=== PATIENT | female | born 1960 | race Caucasian/White ===

== ENCOUNTER 2024-04-30 14:56 | Outpatient (AMB) | payer OTHER, SELFPAY ==
[2024-04-30 15:16] VITALS: BP 107/75; PULSE 80; RESP 19; TEMP 35.6; O2SAT 92; BMI 29.5
--- NOTE | 2024-04-30 15:16 | PD.ORTHCLVIS ---
Vital signs 04/30/24 15:16 Height 1.5 m Height Method Stated Weight 66.395 kg Weight Measurement Method Standing Scale BMI 29.5 BP 107/75 Blood Pressure Source Automatic Cuff Blood Pressure Location Right Upper Arm Position Sitting Respiration 19 Pulse 80 Pulse Source Monitor Temp 96.1 F L Temp Source Temporal Artery Scan Pulse Oximetry (%) 92 L Oxygen Delivery Method Room Air Med/Allergies Allergies & Medications Allergies trimethoprim Allergy (Severe, Verified 04/30/24 15:17) HIVES oxybutynin Allergy (Verified 04/30/24 15:17) rofecoxib Allergy (Verified 04/30/24 15:17) sulfamethoxazole Allergy (Verified 04/30/24 15:17) tolterodine Allergy (Verified 04/30/24 15:17) Medication Reconciliation ipratropium bromide 0.02 % solution for inhalation 0.5 mg inhalation Q6H ##0 07/12/13 [History Confirmed 04/30/24] montelukast 10 mg tablet (Singulair) 10 mg PO HS #0 tabs 07/12/13 [History Confirmed 04/30/24] sertraline 100 mg tablet (Zoloft) 100 mg PO DAILY #0 tabs 07/12/13 [History Confirmed 04/30/24] albuterol sulfate 90 mcg/actuation aerosol inhaler (ProAir HFA) 2 puff inhalation Q6HR PRN WHEEZING #0 inhalations 05/02/15 [History Confirmed 04/30/24] methocarbamol 750 mg tablet 750 mg PO TID #0 tabs 05/02/15 [History Confirmed 04/30/24] ciclesonide 160 mcg/actuation aerosol inhaler (Alvesco) 1 puff inhalation QDAY 09/11/17 [History Confirmed 04/30/24] hydrocodone 10 mg-acetaminophen 325 mg tablet 1 tab PO Q6H 09/11/17 [History Confirmed 04/30/24] levothyroxine 25 mcg tablet 25 mcg PO QDAY 09/11/17 [History Confirmed 04/30/24] metformin 500 mg tablet 500 mg PO BID 09/11/17 [History Confirmed 04/30/24] terbutaline 5 mg tablet 5 mg PO TID 09/11/17 [History Confirmed 04/30/24] trazodone 50 mg tablet 50 mg PO HS 09/11/17 [History Confirmed 04/30/24] triamterene 75 mg-hydrochlorothiazide 50 mg tablet 1 tab PO QAM 09/11/17 [History Confirmed 04/30/24] alprazolam 1 mg tablet 1 mg PO TID PRN Anxiety 08/28/22 [History Confirmed 04/30/24] lisinopril 10 mg tablet 10 mg PO QDAY 08/28/22 [History Confirmed 04/30/24] Subjective Visit Visit for: follow up visit, hip and knee Immunization / Flu Flu Vaccine in the Last 12 Months: No Flu Vaccine Exclusion Criteria: Refused by Patient History of Present Illness Chief complaint: Right hip pain Patient is a pleasant 64-year-old female with right hip pain. The right hip pain has been ongoing for about 6 months. She is on Coumadin. He is also on muscle relaxer. He has a history of a right total knee replacement and has persistent pain and notices that her knee curved outward. Pain Pain level (0-10): 4 Pain duration: CONSTANT Pain location: inside (medial) Pain quality: sharp, dull and aching Pain timing: increases with activity Associated signs & symptoms: numbness, weakness and stiffness Ambulatory data Ambulatory device: none Treatments Improvement with previous injections: No Improvement with PT: No Improvement with NSAIDS: no Review of Systems Review of Systems: All systems negative unless otherwise noted in HPI. Exam Exam Patient is in no acute distress and is cooperative with the examination today. Patient has a normal mood and affect. Breathing is nonlabored. In no respiratory distress. Bilateral extremities were evaluated and demonstrates sensation intact to light touch. Palpable pedal pulses are present. No significant edema is present. Right hip is tender to palpation. She Has a mildly positive logroll. She can internally rotate to 20 degrees and externally rotate to 15 degrees. She can flex 90 degrees. Her right knee is in valgus alignment. Her knee incision is clean dry intact. There is 5 Millimeters of laxity Left knee is tender to palpation medially. X-rays of the right hip demonstrate mild arthritis. There is significant spinal pathology as well including significant degenerative disc disease in her spine. Her right knee x-rays demonstrate cementless total knee replacement midline position. There is a similar prosthesis. Appears to be in valgus still. I do not see any medial supplements. Left knee x-rays demonstrate significant arthritis . Assessment and Plan Problem List (1) Arthritis of right hip: Status: Acute Plan: Patient is a 64-year-old female with right hip pain and right hip arthritis. It is a bit of an atypical presentation. A lot of her pain is in her buttocks and back. We did a hip injection and she got minimal pain relief. I do think her spine is the most likely cause. She is referred symptoms are consistent with spinal stenosis as she has a shopping cart sign and significant degeneration on x-rays. We will order an MRI. We will likely send her a spine surgeon but we will need an MRI as she likely has significant spinal stenosis Office Procedures GNS Level of Care Nursing/Assessment Patient Status: Established Patient Nursing Assessment/Reassesment: Medication Reconciliation, Update PMH in EMR and Vital Signs Coordination of Care: Complex Care and Chronic Disease 1-5, Education Complex Pt/Fam, Consent,records obtained, informed consent, 1 Ins Authorization, Results/Orders obtained and Staff clarify orders Established Patient Charge Established Patient Point Assignment: 110 Established Patient Point Charge: EP Level 3 (80-115) Past Medical History Past Medical History Have you ever been diagnosed with any of the following: Neurological Problems Seizures: No Cardiology Problems Congestive Heart Failure: No Hypertension: Yes Respiratory Problems Chronic Obstructive Pulmonary Disease (COPD): Yes Asthma: Yes Emphysema: No Pneumonia: Yes Tuberculosis: No Sleep Apnea: Yes Smoking: No Smoking Exposure: No Genital/Urinary Problems Renal Disease: No Musculoskeletal Problems Arthritis: Yes Head,Eye,Nose,Throat Problems Cataracts: Yes (BILATERAL) Deafness: Yes Endocrine Problems Diabetes Mellitus Type 1: No Diabetes Mellitus Type 2: Yes Hypothyroidism: Yes Psychologic Problems Depression: Yes Anxiety: Yes Other Problems Blood Transfusions: No Anesthesia Reactions: Yes (n/v) Cancer: No Surgical History Valve Replacement: Yes (AORTIC VALVE REPLACEMENT) Total Knee Replacement: Yes (RIGHT) Hysterectomy: Yes (2004) Sinus Surgery: Yes (2014)
== END 2024-04-30 15:22 | disposition home or self-care (01) ==
LOC: HODSRG 14:56
PROVIDERS: Supervising Provider Orthopaedic Surgery Adult Reconstructive Orthopaedic Surgery; Visit Provider Orthopaedic Surgery Adult Reconstructive Orthopaedic Surgery
DX: M16.11 Unilateral primary osteoarthritis, right hip (principal); M25.551 Pain in right hip; I10 Essential (primary) hypertension; Z96.651 Presence of right artificial knee joint
CPT/HCPCS: 99213; G0463

== ENCOUNTER → 2024-05-12 | Outpatient (CLI) | payer OTHER, SELFPAY ==
[2024-05-12 08:11] LABS: Collection Type, Urine Clean Catch
[2024-05-12 08:30] LABS: Bilirubin,Urine Negative (Negative); Blood,Urine Trace (Negative); Clarity,Urine Clear (Clear/Hazy); Color,Urine Lt-Yellow (Lt Yel-Yel); Glucose, Urine Negative (Negative); Ketones,Urine Negative (Negative); Leukocyte Esterase,Urine Negative (Negative); Nitrite,Urine Negative (Negative); PH,Urine 6.5 (5.0-7.0); Protein,Urine Negative (Neg - Trace); RBC,Urine 5 /hpf (0-3); Specific Gravity,Urine 1.012 (1.001-1.035); Squamous Epithelial Cell,Urine < 1 /hpf (0-5); Urobilinogen,Urine Negative mg/dL (0.0-1.0); WBC,Urine 1 /hpf (0-5)
[2024-05-12 08:30] LABS: Basophils % (Auto) 1 % (0-2.5); Eosinophils # (Auto) 0.2 Thou/mm3 (0.0-0.5); Eosinophils % (Auto) 2 % (0-10); Hemoglobin 11.3 g/dL (12.0-16.0); Immature Granulocytes % (Auto) 0 % (0-0); Immature Granulocytes Auto 0.02 Thou/mm3 (0.00-0.00); Lymphocytes % (Auto) 28 % (10-50); Mean Corpuscular HGB Conc 33.2 g/dl (31.0-37.0); Mean Corpuscular Hemoglobin 30.6 pg (25.0-35.0); Mean Corpuscular Volume 92 fL (80-100); Monocytes # (Auto) 0.6 Thou/mm3 (0.0-0.8); Monocytes % (Auto) 8 % (0-12); Neutrophils # (Auto) 4.4 Thou/mm3 (1.8-7.7); Neutrophils % (Auto) 61 % (37-80); Nucleated Red Blood Cell % 0 /100 WBC (0); Platelet Count 274 Thou/mm3 (140-440); RDW Standard Deviation 45.1 fL (36.4-46.3); Red Blood Count 3.69 Miln/mm3 (4.00-5.20); White Blood Count 7.1 Thou/mm3 (3.6-11.0)
[2024-05-12 09:00] LABS: Creatinine MALB Rnd Ur 45 mg/dL (30-125); Microalbumin, Random Urine < 3 mg/L (0-300)
[2024-05-12 09:01] LABS: Alanine Aminotransferase 16 U/L (10-49); Albumin, Serum 4.4 gm/dL (3.4-4.8); Albumin/Globulin Ratio 1.6 (1.2-2.2); Anion Gap 6 (7-16); Aspartate Amino Transferase 21 U/L (0-34); BUN/Creatinine Ratio 19 Ratio (12-20); Bilirubin,Total 0.3 mg/dL (0.3-1.2); Blood Urea Nitrogen 17 mg/dL (9-23); Calcium 9.8 mg/dL (8.3-10.6); Calcium (Corrected) 9.8 mg/dL (8.5-10.1); Carbon Dioxide 27.9 mMol/L (20.0-31.0); Chloride 100 mMol/L (98-107); Cholesterol 169 mg/dL (132-200); Creatinine (Component) 0.9 mg/dL (0.6-1.3); Globulin 2.7 gm/dL (2.3-3.5); Glucose 132 mg/dL (74-106); HDL Cholesterol 71 mg/dL (40-60); LDL Cholesterol,Calculated 87 mg/dL (0-130); Osmolality,Calculated 271 (275-295); Potassium 4.3 mMol/L (3.4-5.1); Sodium 134 mMol/L (136-145); Total Protein 7.1 gm/dL (5.7-8.2); Triglycerides 56 mg/dL (30-150); eGFR > 60 See Note
[2024-05-12 09:02] LABS: Alkaline Phosphatase 73 U/L (46-116); Cardiac Risk Estimate 2.4 RATIO (3.7-5.6); Thyroid Stimulating Hormone 3.47 uIU/mL (0.55-4.78)
[2024-05-12 15:03] LABS: Ferritin 29 ng/mL (7.3-270.7)
== END | disposition home or self-care (01) ==
LOC: COPL 07:13
PROVIDERS: PCP Internal Medicine; Referring Provider Internal Medicine; Visit Provider Internal Medicine
DX: E03.9 Hypothyroidism, unspecified (principal); D64.89 Other specified anemias
CPT/HCPCS: 36415; 80053; 80061; 81001; 82043; 82570; 82728; 84443; 85025

== ENCOUNTER → 2024-05-17 | Outpatient (CLI) | payer OTHER, SELFPAY ==
--- NOTE | 2024-05-17 14:45 | XR_ITS ---
Examination: MRI lumbar spine without contrast Date and time of exam: May 17, 2024 1529 hours Comparison January 20, 2021 INDICATIONS: Low back pain beginning 9 months ago radiating to the hips and right groin down the right leg with difficulty walking Technique: Multiple MRI axial and sagittal sections lumbar spine. Sagittal T2-weighted images, TR 3500, TE 118 T1 weighted transverse sections, TR 688 T8.5, T2-weighted sagittal sections T1 weighted sagittal sections TR 621, TE 30 T2 axial sections, TR 4, 190, TE 84. Findings: Again noted grade 1 anterolisthesis L4 on L5 [employer] film shows lumbar dextroscoliosis 15 degrees No lumbar fracture Advanced disc narrowing L1-L2, L2-L3, L4-L5 Adequate marrow signal lumbar vertebral bodies L5-S1 no disc protrusion L4-L5 severe spinal stenosis secondary to the grade 1 anterolisthesis, very prominent facet arthropathy with thickening of ligamentum flavum, circumferentially narrowing the thecal sac, axial image 4 with moderate right L4 ganglionic compression L3-L4 4 mm central lumbar disc bulge L2-L3 no disc protrusion L1-L2 no disc protrusion IMPRESSION: Advanced degenerative disc disease L1-L2, L2-L3, L4-L5 L4-L5 severe spinal stenosis as above
== END | disposition home or self-care (01) ==
PROVIDERS: PCP Internal Medicine; Referring Provider Orthopaedic Surgery Adult Reconstructive Orthopaedic Surgery; Visit Provider Orthopaedic Surgery Adult Reconstructive Orthopaedic Surgery
DX: M51.369 Other intervertebral disc degeneration, lumbar region without mention of lumbar back pain or lower extremity pain (principal); M48.061 Spinal stenosis, lumbar region without neurogenic claudication
CPT/HCPCS: 72148

== ENCOUNTER 2024-06-04 10:23 | Outpatient (AMB) | payer OTHER, SELFPAY ==
[2024-06-04 10:41] VITALS: BP 105/73; PULSE 94; RESP 16; TEMP 36.3; O2SAT 98; BMI 28.9
--- NOTE | 2024-06-04 10:41 | RHCORTHONT_ITS ---
Vital signs 06/04/24 10:41 Height 1.5 m Height Method Stated Weight 65.034 kg Weight Measurement Method Standing Scale BMI 28.9 BP 105/73 Blood Pressure Source Automatic Cuff Blood Pressure Location Left Upper Arm Position Sitting Respiration 16 Pulse 94 Pulse Source Monitor Temp 97.3 F Temp Source Temporal Artery Scan Pulse Oximetry (%) 98 Oxygen Delivery Method Room Air Med/Allergies Allergies & Medications Allergies trimethoprim Allergy (Severe, Verified 06/04/24 10:42) HIVES oxybutynin Allergy (Verified 06/04/24 10:42) rofecoxib Allergy (Verified 06/04/24 10:42) sulfamethoxazole Allergy (Verified 06/04/24 10:42) tolterodine Allergy (Verified 06/04/24 10:42) Medication Reconciliation ipratropium bromide 0.02 % solution for inhalation 0.5 mg inhalation Q6H ##0 07/12/13 [History Confirmed 06/04/24] montelukast 10 mg tablet (Singulair) 10 mg PO HS #0 tabs 07/12/13 [History Confirmed 06/04/24] sertraline 100 mg tablet (Zoloft) 100 mg PO DAILY #0 tabs 07/12/13 [History Confirmed 06/04/24] albuterol sulfate 90 mcg/actuation aerosol inhaler (ProAir HFA) 2 puff inhalation Q6HR PRN WHEEZING #0 inhalations 05/02/15 [History Confirmed 06/04/24] methocarbamol 750 mg tablet 750 mg PO TID #0 tabs 05/02/15 [History Confirmed 06/04/24] ciclesonide 160 mcg/actuation aerosol inhaler (Alvesco) 1 puff inhalation QDAY 09/11/17 [History Confirmed 06/04/24] hydrocodone 10 mg-acetaminophen 325 mg tablet 1 tab PO Q6H 09/11/17 [History Confirmed 06/04/24] levothyroxine 25 mcg tablet 25 mcg PO QDAY 09/11/17 [History Confirmed 06/04/24] metformin 500 mg tablet 500 mg PO BID 09/11/17 [History Confirmed 06/04/24] terbutaline 5 mg tablet 5 mg PO TID 09/11/17 [History Confirmed 06/04/24] trazodone 50 mg tablet 50 mg PO HS 09/11/17 [History Confirmed 06/04/24] triamterene 75 mg-hydrochlorothiazide 50 mg tablet 1 tab PO QAM 09/11/17 [History Confirmed 06/04/24] alprazolam 1 mg tablet 1 mg PO TID PRN Anxiety 08/28/22 [History Confirmed 06/04/24] lisinopril 10 mg tablet 10 mg PO QDAY 08/28/22 [History Confirmed 06/04/24] Exam Exam Patient is in no acute distress and is cooperative with the examination today. Patient has a normal mood and affect. Breathing is nonlabored. In no respiratory distress. Bilateral extremities were evaluated and demonstrates sensation intact to light touch. Palpable pedal pulses are present. No significant edema is present. Right hip is tender to palpation. She Has a mildly positive logroll. She can internally rotate to 20 degrees and externally rotate to 15 degrees. She can flex 90 degrees. Her right knee is in valgus alignment. Her knee incision is clean dry intact. There is 5 Millimeters of laxity Left knee is tender to palpation medially. X-rays of the right hip demonstrate mild arthritis. There is significant spinal pathology as well including significant degenerative disc disease in her spine. Her right knee x-rays demonstrate cementless total knee replacement midline position. There is a similar prosthesis. Appears to be in valgus still. I do not see any medial supplements. Left knee x-rays demonstrate significant arthritis . We reviewed her MRI. This demonstrates severe spinal stenosis at L4-5 with significant compression and central canal stenosis. Assessment and Plan Problem List (1) Spinal stenosis: Status: Acute Plan: Patient is a 64-year-old female with spinal stenosis of significant severity. We recommend that she see a spine doctor. She has a positive shopping cart sign and severe nerve cord compression on the MRI. I am am referring her to a Spine doctor. I discussed the problem with the patient in great detail. She can see me on an as-needed basis as the primary problem is from her spine Office Procedures GNS Level of Care Nursing/Assessment Patient Status: Established Patient Nursing Assessment/Reassesment: Medication Reconciliation, Update PMH in EMR and Vital Signs Coordination of Care: Complex Care and Chronic Disease 1-5, Education Complex Pt/Fam, 1 Ins Authorization, Results/Orders obtained and Staff clarify orders Established Patient Charge Established Patient Point Assignment: 105 Established Patient Point Charge: EP Level 3 (80-115) MA Intake Visit Data Collection New Patient or Established: Established Patient (seen at [facility] within 3 years) Reason for Visit:: MRI RESULTS Seen by Clinical Staff ONLY (RN/MA): No [employer] Required: No PCP or OBGYN visit in last 3 months: Yes Hx Now: No Do You Feel Safe at Home: Yes Questionairres Past Medical History Past Medical History Have you ever been diagnosed with any of the following: Neurological Problems Seizures: No Cardiology Problems Congestive Heart Failure: No Hypertension: Yes Respiratory Problems Chronic Obstructive Pulmonary Disease (COPD): Yes Asthma: Yes Emphysema: No Pneumonia: Yes Tuberculosis: No Sleep Apnea: Yes Smoking: No Smoking Exposure: No Genital/Urinary Problems Renal Disease: No Musculoskeletal Problems Arthritis: Yes Head,Eye,Nose,Throat Problems Cataracts: Yes (BILATERAL) Deafness: Yes Endocrine Problems Diabetes Mellitus Type 1: No Diabetes Mellitus Type 2: Yes Hypothyroidism: Yes Psychologic Problems Depression: Yes Anxiety: Yes Other Problems Blood Transfusions: No Anesthesia Reactions: Yes (n/v) Cancer: No Surgical History Valve Replacement: Yes (AORTIC VALVE REPLACEMENT) Total Knee Replacement: Yes (RIGHT) Hysterectomy: Yes (2004) Sinus Surgery: Yes (2014) Subjective Visit Visit for: follow up visit and MRI Immunization / Flu Flu Vaccine in the Last 12 Months: Yes Flu Vaccine Exclusion Criteria: Already Received History of Present Illness Chief complaint: MRI RESULTS Patient is a pleasant 64-year-old female with persistent right leg pain. We diagnosed her with severe spinal stenosis and ordered an MRI. This demonstrates severe L4-5 spinal compression. She does have a positive shopping cart sign Pain Pain level (0-10): 8 Pain duration: CONSTANT Pain location: groin, inside (medial), outside (lateral), anterior and posterior Pain quality: sharp, dull and aching Pain timing: increases with activity Associated signs & symptoms: numbness Ambulatory data Ambulatory device: none Review of Systems Review of Systems: All systems negative unless otherwise noted in HPI.
== END 2024-06-04 11:18 | disposition home or self-care (01) ==
LOC: HODSRG 10:23
PROVIDERS: PCP Internal Medicine; Referring Provider Internal Medicine; Supervising Provider Orthopaedic Surgery Adult Reconstructive Orthopaedic Surgery; Visit Provider Orthopaedic Surgery Adult Reconstructive Orthopaedic Surgery
DX: M48.061 Spinal stenosis, lumbar region without neurogenic claudication (principal); M79.604 Pain in right leg; I10 Essential (primary) hypertension; E11.9 Type 2 diabetes mellitus without complications; J44.9 Chronic obstructive pulmonary disease, unspecified; E03.9 Hypothyroidism, unspecified
CPT/HCPCS: 99213; G0463

== ENCOUNTER → 2024-07-01 | Outpatient (CLI) | payer OTHER, SELFPAY ==
--- NOTE | 2024-07-01 09:00 | XR_ITS ---
Examination: MRI left ankle, without contrast Date and time of exam: July 01, 2024 1021 hours Comparison October 12, 2016 Technique: Multiple axial sagittal and coronal images of the left ankle have been obtained with the Siemens high-resolution 1.5 Aleksandra MRI scanner. Images obtained include T2-weighted fat-suppressed sagittal sections, TR 3500, TE 46, T2 weighted coronal fat suppressed images, TR 3050, TE 84, T2-weighted transverse fat suppressed images, TR 3260, TE 63, proton density transverse images, TR 4720 TE 46, and T1 weighted coronal images, TR 560, TE 13. Findings: Mild biconvex thickening of the Achilles tendon Mild plantar fasciitis Advanced osteoarthritis subtalar joint Moderate to advanced osteoarthritis tarsometatarsal joints Negative for sinus Tarsi syndrome Dome of the talus intact Prominent diffuse tendinitis flexor tendons, most severe flexor hallucis longus Mild strain anterior posterior talar fibular ligaments Posterior inferior tibiofibular ligaments intact Extensor ligaments intact IMPRESSION: Significant osteoarthritis as above, especially subtalar joint Prominent diffuse flexor tendinitis
== END | disposition home or self-care (01) ==
LOC: SMRI 08:45
PROVIDERS: PCP Podiatrist; Referring Provider Podiatrist; Visit Provider Podiatrist
DX: M19.072 Primary osteoarthritis, left ankle and foot (principal); M67.874 Other specified disorders of tendon, left ankle and foot
CPT/HCPCS: 73721

== ENCOUNTER → 2025-02-16 | Outpatient (CLI) | payer OTHER, SELFPAY ==
[2025-02-16 09:00] LABS: Collection Type, Urine Clean Catch
[2025-02-16 09:26] LABS: Basophils # (Auto) 0.1 Thou/mm3 (0.0-0.2); Basophils % (Auto) 1 % (0-2.5); Eosinophils # (Auto) 0.3 Thou/mm3 (0.0-0.5); Eosinophils % (Auto) 4 % (0-10); Hematocrit 35.1 % (36.0-46.0); Hemoglobin 11.4 g/dL (12.0-16.0); Immature Granulocytes Auto 0.02 Thou/mm3 (0.00-0.00); Lymphocytes # (Auto) 2.2 Thou/mm3 (1.0-4.8); Lymphocytes % (Auto) 31 % (10-50); Mean Corpuscular HGB Conc 32.5 g/dl (31.0-37.0); Mean Corpuscular Hemoglobin 30.3 pg (25.0-35.0); Mean Corpuscular Volume 93 fL (80-100); Monocytes # (Auto) 0.5 Thou/mm3 (0.0-0.8); Monocytes % (Auto) 7 % (0-12); Neutrophils # (Auto) 4.0 Thou/mm3 (1.8-7.7); Neutrophils % (Auto) 56 % (37-80); Nucleated Red Blood Cell # 0.00 Thou/mm3 (0.00-0.00); Nucleated Red Blood Cell % 0 /100 WBC (0); Platelet Count 262 Thou/mm3 (140-440); RDW Standard Deviation 45.4 fL (36.4-46.3); Red Blood Count 3.76 Miln/mm3 (4.00-5.20); White Blood Count 7.1 Thou/mm3 (3.6-11.0)
[2025-02-16 09:32] LABS: Bilirubin,Urine Negative (Negative); Blood,Urine Trace (Negative); Clarity,Urine Clear (Clear/Hazy); Color,Urine Lt-Yellow (Lt Yel-Yel); Glucose, Urine Negative (Negative); Ketones,Urine Negative (Negative); Leukocyte Esterase,Urine Negative (Negative); Nitrite,Urine Negative (Negative); PH,Urine 6.5 (5.0-7.0); Protein,Urine Negative (Neg - Trace); RBC,Urine 4 /hpf (0-3); Specific Gravity,Urine 1.013 (1.001-1.035); Squamous Epithelial Cell,Urine < 1 /hpf (0-5); Urobilinogen,Urine Negative mg/dL (0.0-1.0); WBC,Urine 1 /hpf (0-5)
[2025-02-16 09:37] LABS: Glucose Estimated Average 117 mg/dL (80-131); Hemoglobin A1C 5.7 % Hgb (4.8-6.0)
[2025-02-16 09:48] LABS: Ferritin 33 ng/mL (7.3-270.7)
[2025-02-16 09:55] LABS: Creatinine MALB Rnd Ur 52 mg/dL (30-125); Microalbumin, Random Urine < 3 mg/L (0-300)
[2025-02-16 10:10] LABS: Albumin, Serum 4.2 gm/dL (3.4-4.8); Albumin/Globulin Ratio 2.0 (1.2-2.2); Alkaline Phosphatase 91 U/L (46-116); Anion Gap 13 (7-16); Aspartate Amino Transferase 18 U/L (0-34); BUN/Creatinine Ratio 20 Ratio (12-20); Bilirubin,Total 0.4 mg/dL (0.3-1.2); Blood Urea Nitrogen 20 mg/dL (9-23); Calcium 9.8 mg/dL (8.3-10.6); Calcium (Corrected) 9.8 mg/dL (8.5-10.1); Carbon Dioxide 24.6 mMol/L (20.0-31.0); Cardiac Risk Estimate 2.5 RATIO (3.7-5.6); Chloride 104 mMol/L (98-107); Cholesterol 159 mg/dL (132-200); Creatinine (Component) 1.0 mg/dL (0.6-1.3); Globulin 2.1 gm/dL (2.3-3.5); Glucose 144 mg/dL (74-106); HDL Cholesterol 64 mg/dL (40-60); Osmolality,Calculated 288 (275-295); Potassium 3.9 mMol/L (3.4-5.1); Sodium 142 mMol/L (136-145); Thyroid Stimulating Hormone 3.50 uIU/mL (0.55-4.78); Total Protein 6.3 gm/dL (5.7-8.2); eGFR > 60 See Note
[2025-02-16 10:22] LABS: Alanine Aminotransferase 11 U/L (10-49); LDL Cholesterol,Calculated 79 mg/dL (0-130); Triglycerides 81 mg/dL (30-150); Uric Acid 6.0 mg/dL (3.1-7.8)
[2025-02-16 10:31] LABS: Vitamin B12 538 pg/mL (211-911); Vitamin D 25 Hydroxy Total 59.0 ng/mL (7.3-40.2)
== END | disposition home or self-care (01) ==
LOC: COPL 07:59
PROVIDERS: PCP Internal Medicine; Referring Provider Internal Medicine; Visit Provider Internal Medicine
DX: E03.9 Hypothyroidism, unspecified (principal); D64.89 Other specified anemias; E11.9 Type 2 diabetes mellitus without complications
CPT/HCPCS: 36415; 80053; 80061; 81001; 82043; 82306; 82570; 82607; 82728; 83036; 84443; 84550; 85025

== ENCOUNTER → 2025-03-31 | Outpatient (CLI) | payer OTHER, SELFPAY ==
--- NOTE | 2025-03-31 13:00 | XR_ITS ---
Examination: CT maxillofacial, without intravenous contrast. 2-D sagittal reconstructions. 3-D reconstructions. Date and time of exam: March 31, 2025, 1307 hours INDICATIONS: Facial pain beginning 2 months ago CTDI: vol (mGy): 6.32 DLP: (mGycm): 576 Technique: Multiple axial images of maxillofacial region, 3.0 mm slice thickness. 2-D sagittal and coronal reconstructions. 3-D reconstructions. Low dose protocols were performed. One or more of the following dose reduction techniques were used; automated exposure control, adjustment of the mA and/or KV according to patient size, use of iterative reconstruction technique. Findings: Trace mucosal thickening in the frontal and ethmoid air cells Maxillary antra are clear No retention cysts or polyps noted No cortical bone destruction No nasopharyngeal mass The optic globes exhibit symmetry IMPRESSION: No significant sinusitis.
== END | disposition home or self-care (01) ==
PROVIDERS: PCP Internal Medicine
DX: J32.9 Chronic sinusitis, unspecified (principal)
CPT/HCPCS: 70486